=== PATIENT | male | born 2000 | race Caucasian/White ===

== ENCOUNTER 2022-02-06 17:38 | Emergency (ER) | payer OTHER, SELFPAY ==
[2022-02-06 18:25] VITALS: BP 117/65; PULSE 78; RESP 18; TEMP 36; O2SAT 98; BMI 23.7
[2022-02-06 18:59] LABS: Appearance Urine Cloudy (Clear); Bilirubin Urine 2+ (Negative); Blood Urine Negative (Negative); Color Urine Red (Yellow); Glucose Urine 1+ (Negative); Ketones Urine 2+ (Negative); Leukocyte Esterase Urine 3+ (Negative); Nitrite Urine Positive (Negative); Protein Urine 2+ (Negative); Specific Gravity Urine <= 1.005 (1.000-1.030); Urobilinogen Urine >=8.0 (0.2-1.0)
[2022-02-06 19:02] LABS: RBC Urine 0-2 (0-2); WBC Urine 0-2 (0-5)
--- NOTE | 2022-02-06 20:10 | ED_ITS ---
HPI - Male Genitourinary General Chief complaint: Urogenital Problems, Male Stated complaint: Possible UTI Time Seen by Provider: 02/06/22 18:09 History of Present Illness HPI Narrative: 21-year-old young man presenting with his girlfriend with concern of painful urination now 2nd day. He has been treating with somezo. No fever. No significant abdominal pain. Has noticed hematuria. Just urine orange from the azo. Never had a urinary tract infection or similar before. Denies any unusual activities with the genitourinary area. Prior to my seeing Wesley is urinalysis is already resulted. Clearly positive with nitrite. Pending is add on gonorrhea and chlamydia testing Related Data Sexually active: Yes Allergies Allergy/AdvReac Type Severity Reaction Status Date / Time No Known Drug Allergies Allergy Verified 02/06/22 18:32 Review of Systems Status of ROS: Reports: 6 or more systems reviewed and unremarkable except as noted in History and below PFSH PFSH Social History Smoking Status: Never smoker Do you use any of these nicotine containing products: None Second hand tobacco smoke exposure: No How often do you have a drink containing alcohol: never AUDIT-C Alcohol total score: 0 Non-prescribed substance use: denies use Exam Narrative: Exam Narrative: pleasant. nad. cn 2 - 12 intact skin. warm and dry. no apparent rash heart with regular rate breathing easily and lungs appear to be clear. abdomen flat, soft and non-tender - no flank pain exam not done. Const: Vital Signs, click to edit/add: Vital Signs - 24 hr 02/06/22 18:25 Temperature 96.8 F L Pulse Rate [Femora l] 78 Respiratory Rate 18 Blood Pressure [Ri ght Upper Arm] 117/65 Pulse Oximetry 98 Oxygen Delivery Me thod Room Air Documenting provider has reviewed patient's vital signs: yes Course Course Hospital Course: evaluated in triage room d/t very busy ER Vital Signs Vital signs: Initial Vital Signs Temperature 96.8 F L 02/06/22 18:25 Temperature Source Temporal Artery Scan 02/06/22 18:25 Pulse Rate 78 02/06/22 18:25 Pulse Rhythm 02/06/22 18:25 Respiratory Rate 18 02/06/22 18:25 Blood Pressure 117/65 02/06/22 18:25 Blood Pressure Mean 82 02/06/22 18:25 Blood Pressure Position Sitting 02/06/22 18:25 Pulse Oximetry 98 02/06/22 18:25 Oxygen Delivery Method 02/06/22 18:25 Vital Signs Temperature 96.8 F L 02/06/22 18:25 Pulse Rate 78 02/06/22 18:25 Respiratory Rate 18 02/06/22 18:25 Blood Pressure 117/65 02/06/22 18:25 Pulse Oximetry 98 02/06/22 18:25 Oxygen Delivery Method 02/06/22 18:25 Temperature 96.8 F L 02/06/22 18:25 Pulse Rate 78 02/06/22 18:25 Respiratory Rate 18 02/06/22 18:25 Blood Pressure 117/65 02/06/22 18:25 Pulse Oximetry 98 02/06/22 18:25 Oxygen Delivery Method 02/06/22 18:25 MDM - Male Genitourinary MDM Narrative Medical decision making narrative: If this was prostatitis I would expect much more discomfort given this degree of abnormality in the urine. he indicates that appears normal Lab Data Attestation: I reviewed the patient's lab results. Labs: Lab Results 02/06/22 02/06/22 Range/Units 18:38 20:05 Urine Color Red A (Yellow) Urine Appearance Cloudy A (Clear) Urine pH 5.0 (5.0-8.5) Ur Specific Gideon <= 1.005 (1.000-1.030) Urine Protein 2+ A (Negative) Urine Glucose (UA) 1+ A (Negative) Urine Ketones 2+ A (Negative) Urine Blood Negative (Negative) Urine Nitrite Positive A (Negative) Urine Bilirubin 2+ A (Negative) Urine Urobilinogen >=8.0 (0.2-1.0) Ur Leukocyte Esterase 3+ A (Negative) Urine RBC 0-2 (0-2) Urine WBC 0-2 (0-5) Ur Squamous Epith Cells None (None-Few) Urine Bacteria None (None) C.trachomatis Ampl DNA NOT DETECTED (No Detected) N.gonorrhoeae Ampl DNA NOT DETECTED (No Detected) Discharge Plan Discharge Clinical Impression: Urinary tract infection, Urethritis Patient Disposition: Home, Self-Care Condition: Stable Additional Instructions: Hydrate. Return for marked increase in abdominal pain, fever Urine culture is pending here along with that testing talked about. I will call you if there is any thing else that comes back positive. Please follow-up to discuss this visit/infection and any need for further evaluation in primary care. Cephalexin from [facility]. (gonorrhea and chlamydia testing indeed was negative) Stand Alone Forms: [employer] Info Instructions
[2022-02-06 21:55] LABS: Chlamydia DNA Amplified* NOT DETECTED (No Detected); GC DNA Amplified* NOT DETECTED (No Detected)
== END 2022-02-06 23:00 | disposition home or self-care (01) ==
PROVIDERS: Emergency Medicine Emergency Medical Services; Emergency Provider Family Medicine
DX: N39.0 Urinary tract infection, site not specified (principal); N34.2 Other urethritis
CPT/HCPCS: 81001; 87086; 87491; 87591; 99283; 99284